=== PATIENT | male | born 1985 | race Caucasian/White ===

== ENCOUNTER 2020-12-15 05:39 | Day surgery (SDC) | payer BC ==
[2020-12-14 14:03] VITALS: BMI 25.8
[2020-12-15] MEDS ORDERED: cefOXitin Sodium/Dextrose 2 GM/50 ML BAG ONE (06:07)
[2020-12-15 06:30] LABS: #Basophils 0.1 thou/uL (0.0-0.2); #Eosinphils 0.1 thou/uL (0.0-0.7); #Lymphocytes 1.8 thou/uL (1.20-3.40); #Monocytes 0.9 thou/uL (0.11-0.59); %Basophils 0.9 % (0.0-1.0); %Eosinophils 1.5 % (0.0-10.0); %Lymphocytes 25.8 % (21.0-51.0); %Monocytes 13.2 % (0.0-10.0); %Neutrophils 58.5 % (42.0-75.0); Hemoglobin 14.8 g/dL (14.0-18.0); Mean Corpuscular HGB CONC 34.1 g/dL (32.0-36.0); Mean Corpuscular Hemoglobin 30.4 pg (27.0-31.0); Mean Platelet Volume 9.2 fL (7.4-10.4); Platelet Count 227 thou/uL (130-400); RBC Distribution Width 11.1 % (11.5-14.5); Red Blood Cell (RBC) Count 4.86 mill/uL (4.70-6.10); White Blood Cell (WBC) Count 6.9 thou/uL (4.8-10.8)
[2020-12-15] MEDS ORDERED: XYLOCAINE 2%-EPI 1:100,000 20 ML VIAL ONE (06:45)
[2020-12-15] MEDS ORDERED: Bacitracin Zinc Ointment 30 gm TUBE ONE (06:45)
[2020-12-15] MEDS ORDERED: Bupivacaine 0.25% HCL 30 ML VIAL ONE (06:45)
[2020-12-15 07:02] LABS: SARS-CoV-2 NAA Rapid Test Not Detected (NotDetected)
[2020-12-15] MEDS ORDERED: Fentanyl 100 MCG/2 ML VIAL ONE ×3 (07:25→09:21)
[2020-12-15] MEDS ORDERED: Midazolam HCl 2 mg/2 ml Vial ONE (07:44)
[2020-12-15] MEDS ORDERED: SUGAMMADEX SODIUM 200 MG/2 ML VIAL ONE (08:28)
[2020-12-15] MEDS ORDERED: Meperidine HCl/PF 25 MG/ML VIAL ONE (08:49)
--- NOTE | 2020-12-15 09:03 | OP ---
DATE OF PROCEDURE: 12/15/2020 PREOPERATIVE DIAGNOSIS: Bleeding hemorrhoids. PROCEDURE PERFORMED: PPH stapled hemorrhoidectomy. INDICATIONS: A 35-year-old male, who has been having a several year history of pain, bleeding from hemorrhoids. FINDINGS: Grade 3 hemorrhoids. DESCRIPTION OF PROCEDURE: After informed consent was obtained, the patient was taken to the operating room, given general endotracheal anesthesia, placed in the prone santo-knife position. Perianal region was prepped and draped after spread apart with tape. Local anesthesia was infiltrated subcutaneously and deep with 0.5% Marcaine. The introducer was inserted and sutured in place with interrupted 0 silk suture. Then, the pursestring guide was inserted and a pursestring of 2-0 Prolene was placed in the rectal mucosa circumferentially. The stapler was inserted with the angle opened maximally proximal to the pursestring. The strings were brought through the channel on the stapler, tied as a knot and held close as the stapler was closed. The stapler was then deployed, held for 30 seconds, release for 30 seconds, and then removed. The specimen inspected. There was no muscle fiber. Sent to Pathology for further analysis. Hemostasis was achieved. Gelfoam impregnated with bacitracin was inserted within the anal canal. Sterile bandage applied. The patient tolerated the procedure well, transferred to Recovery in good condition. Sponge and needle count verified correct x2. Job ID: [id number]
[2020-12-15] MEDS ORDERED: Ondansetron PF 4 MG/2 ML Vial ONE ×2 (09:05→09:47)
[2020-12-15] MEDS ORDERED: Dexamethasone 20 MG/5 ML VIAL ONE (09:47)
[2020-12-15] MEDS ORDERED: Lidocaine 1% PF 5 ML VIAL ONE (09:47)
[2020-12-15] MEDS ORDERED: Glycopyrrolate 0.2 MG/ML 5 ML SYRINGE ONE (09:47)
[2020-12-15] MEDS ORDERED: Rocuronium Bromide 10 MG/ML (10ML VIAL) ONE (09:47)
[2020-12-15] MEDS ORDERED: PROPOFOL 200 MG/20 ML VIAL ONE (09:47)
[2020-12-15] MEDS ORDERED: Ketorolac Tromethamine 30 MG/ML VIAL ONE (09:47)
[2020-12-15] MEDS ORDERED: Morphine 2 MG/ML VIAL ONE (10:24)
[2020-12-15] MEDS ORDERED: Promethazine HCl 25 MG/ML VIAL ONE (10:24)
[2020-12-15] MEDS ORDERED: HYDROcodone/Acetaminophen 5/325 mg Tablet ONE (12:40)
== END 2020-12-15 13:17 | disposition home or self-care (01) ==
LOC: SDC 05:39
PROVIDERS: ATTEND Surgery
PROC: 069Y0ZZ Drainage of Lower Vein, Open Approach (ICD-10-PCS; principal; 2020-12-15)
DX: K64.2 Third degree hemorrhoids (principal); Z20.822 Contact with and (suspected) exposure to COVID-19
CPT/HCPCS: 36415; 85025; 88304; J0694; J1100; J1885; J2175; J2250; J2270; J2405; J2550; J2704; J3010; S0020; U0002